=== PATIENT | female | born 1975 | race Caucasian/White ===

== ENCOUNTER 2016-08-21 23:22 | Emergency (ER) | payer SELFPAY ==
[~2016-08-21] VITALS: Ht 170.2 cm; Wt 90.7 kg
[2016-08-21] MEDS ORDERED: ZOLP5TAB7 (23:36)
[2016-08-21] MEDS ORDERED: SERT50TA9 (23:36)
[2016-08-21] MEDS ORDERED: GABA600T2 (23:36)
[2016-08-22] MEDS ORDERED: RX-NAPROXEN (NAPROSYN) 250 MG TAB PPK#4 PO STA (00:08)
[2016-08-22] MEDS ORDERED: RX-CLINDAMYCIN 150 MG (CLEOCIN) CAP PPK#4 PO STA (00:08)
[2016-08-22] MEDS ORDERED: LIDO15SO2 MM (00:12)
[2016-08-22] MEDS ORDERED: CLIN300C11 PO (00:12)
[2016-08-22] MEDS ORDERED: NAPR500T3 PO (00:12)
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
[2016-08-22] MEDS ORDERED: LIDOCAINE 2% VISCOUS 15 ML UDC PO ONE (00:15)
[2016-08-22 00:20] VITALS: BP 139/96
== END 2016-08-22 00:19 | disposition home or self-care (01) ==
LOC: EDUNIT# 23:22 → ER 23:27
DX: K02.9 Dental caries, unspecified (principal); F17.210 Nicotine dependence, cigarettes, uncomplicated
CPT/HCPCS: 99283

== ENCOUNTER 2016-08-24 15:28 | Emergency (ER) | payer SELFPAY ==
[~2016-08-24] VITALS: Ht 170.2 cm; Wt 90.7 kg
[~2016-08-24 15:28] MED LIST: CLIN300C11 PO; GABA600T2; LIDO15SO2 MM; NAPR500T3 PO; SERT50TA9; ZOLP5TAB7
--- NOTE | 2016-08-24 15:39 | ED EENT ---
History of Present Illness General Stated Complaint: TEETH PAIN Source: patient Exam Limitations: no limitations History of Present Illness Time seen by provider: 15:37 Initial Comments To ER with right lower dental pain for the past few days. She was seen here 2 days ago and got clindamycin, topical lidocaine and Naprosyn. She states this is not new strong for her pain and she will need something stronger. She has not seen her dentist. I called [facility] and they report that she was a no-show on her 08/08 and 08/23 appointment. She states "can you prescribe pain medication in [place] anymore?! I'm going back to [place]!" Timing/Duration: gradual Severity: moderate Location: mouth Associated Symptoms: denies symptoms Allergies and Home Medications Allergies Coded Allergies: Penicillins (Verified Allergy, Unknown, 08/21/16) Home Medications Clindamycin HCl 300 Mg Capsule, 300 MG PO QID, #40 Prescribed by: ALINA LYONS on 08/22/16 0012 Gabapentin 600 Mg Tablet, #135 (Reported) Lidocaine HCl 15 Ml Solution, 5 ML MM Q 1-2 HOURS, #100 Prescribed by: ALINA LYONS on 08/22/16 0012 Naproxen 500 Mg Tablet, 500 MG PO BID, #20 Prescribed by: ALINA LYONS on 08/22/16 0012 Sertraline HCl 50 Mg Tablet, #30 (Reported) Zolpidem Tartrate 5 Mg Tablet, #28 (Reported) Review of Systems Constitutional: see HPI Eyes: No Symptoms Reported Ears: No Symptoms Reported Nose: no symptoms reported Mouth: see HPI Throat: no symptoms reported Respiratory: no symptoms reported Cardiovascular: no symptoms reported Musculoskeletal: no symptoms reported Past Commwug-Bctaat-Ixpmod Hx Patient Social History Type Used: Cigarettes 2nd Hand Smoke Exposure: Yes Recent Foreign Travel: No Contact w/Someone Who Travel: No Recent Hopitalizations: No Immunizations Up To Date Tetanus Booster (TDap): Unknown Seasonal Allergies Seasonal Allergies: No Surgeries HX Surgeries: Yes Surgeries: Appendectomy Respiratory Hx Respiratory Disorders: No Cardiovascular Hx Cardiac Disorders: No Neurological Hx Neurological Disorders: No Reproductive System Female Reproductive Disorders: Denies Genitourinary Hx Genitourinary Disorders: No Gastrointestinal Hx Gastrointestinal Disorders: No Musculoskeletal Hx Musculoskeletal Disorders: No Musculoskeletal Disorders: Fibromyalgia Endocrine Hx Endocrine Disorders: No HEENT HX ENT Disorders: Yes (CHRONIC DENTAL PROBLEMS) Cancer Hx Cancer: No Psychosocial Hx Psychiatric Problems: Yes Behavioral Health Disorders: Sleep Difficulties, Anxiety, Depression Integumentary HX Skin/Integumentary Disorder: No Blood Transfusions Hx Blood Disorders: No Physical Exam General Appearance: WD/WN, no apparent distress Eyes: bilateral eye EOMI, bilateral eye PERRL, bilateral eye normal inspection Ears: bilateral ear TM normal, bilateral ear auricle normal, bilateral ear canal normal Nose: normal inspection, active bleeding Mouth/Throat: other (dental caries) Neck: non-tender, full range of motion Respiratory: no respiratory distress, no accessory muscle use Gastrointestinal: normal bowel sounds, non tender, soft Neurologic/Psychiatric: alert, normal mood/affect, oriented x 3 Skin: normal color, warm/dry Departure Impression Impression: Primary Impression: Pain, dental Disposition: 01 HOME, SELF-CARE Condition: Stable Departure-Patient Inst. Decision time for Depature: 15:37 Referrals: [facility] (PCP) Primary Care Physician JENNIFER BUTLER (Family) Primary Care Physician Patient Instructions: Dental Pain Add. Discharge Instructions: 1. Follow-up with [facility] 2. Continue current medications EMILY ANDERSON APRN Aug 24, 2016 15:39
[2016-08-24 15:43] VITALS: BP 175/100
== END 2016-08-24 15:47 | disposition home or self-care (01) ==
LOC: EDUNIT# 15:28 → ER 15:29
DX: K08.9 Disorder of teeth and supporting structures, unspecified (principal)
CPT/HCPCS: 99283

== ENCOUNTER 2016-09-24 00:31 | Emergency (ER) | payer SELFPAY ==
[~2016-09-24] VITALS: Ht 160 cm; Wt 90.7 kg
[2016-09-24] MEDS ORDERED: NS IV 1000 ML 1,000 ML IV ONE (00:40)
[2016-09-24 00:53] LABS: BASOPHILS # (AUTO) 0.1 10^3/uL (0.0-0.1); BASOPHILS % (AUTO) 1 % (0-10); EOSINOPHILS # (AUTO) 0.4 10^3/uL (0.0-0.3); EOSINOPHILS % (AUTO) 3 % (0-10); LYMPHOCYTES # (AUTO) 5.6 X 10^3 (1.0-4.0); LYMPHOCYTES % (AUTO) 44 % (12-44); MEAN CORPUSCULAR HEMOGLOBIN 34 PG (25-34); MEAN CORPUSCULAR HGB CONC 34 G/DL (32-36); MEAN CORPUSCULAR VOLUME 101 FL (80-99); MEAN PLATELET VOLUME 10.8 FL (7.4-10.4); MONOCYTES # (AUTO) 0.8 X 10^3 (0.0-1.0); MONOCYTES % (AUTO) 6 % (0-12); NEUTROPHILS % (AUTO) 47 % (42-75); PLATELET COUNT 289 10^3/uL (130-400); RED BLOOD COUNT 4.24 10^6/uL (4.35-5.85); RED CELL DISTRIBUTION WIDTH 13.1 % (10.0-14.5); WHITE BLOOD COUNT 12.8 10^3/uL (4.3-11.0)
[2016-09-24 01:10] LABS: ALANINE AMINOTRANSFERASE 25 U/L (0-55); ALBUMIN 4.3 GM/DL (3.2-4.5); ANION GAP 16 MMOL/L (5-14); ASPARTATE AMINO TRANSFERASE 27 U/L (5-34); BILIRUBIN,TOTAL 0.2 MG/DL (0.1-1.0); BLOOD UREA NITROGEN 8 MG/DL (7-18); BUN/CREATININE RATIO 10; CALCIUM 9.2 MG/DL (8.5-10.1); CARBON DIOXIDE 19 MMOL/L (21-32); CHLORIDE 107 MMOL/L (98-107); GFR ESTIMATED > 60; GLUCOSE 109 MG/DL (70-105); POTASSIUM 3.6 MMOL/L (3.6-5.0); SODIUM 142 MMOL/L (135-145); TOTAL PROTEIN 7.6 GM/DL (6.4-8.2)
[2016-09-24 01:17] LABS: ALCOHOL 354 MG/DL (<10)
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
[2016-09-24 02:55] VITALS: BP 131/91
--- NOTE | 2016-09-24 08:26 | Diagnostic Imaging Report ---
PROCEDURE: CT head, face, and cervical spine without contrast. TECHNIQUE: Multiple contiguous axial images were obtained through the head, neck, and facial bones without the use of intravenous contrast. Sagittal and coronal reformations through the cervical spine and facial bones were also performed. INDICATION: Fall. Hematoma on back of head. Blood in mouth FINDINGS: There is a large hematoma overlying the left posterior parietal lobe. There is no evidence of an underlying calvarial fracture. There is a small region of hyperdensity overlying the anterior aspect of the right frontal lobe measuring approximately 6 mm on axial image 11. While this could reflect a small meningioma, the possibility of a small degree of blood products in the setting of trauma is not completely excluded. No intra-axial hemorrhage is demonstrated. There is no mass effect or hydrocephalus. Kendall-white differentiation appears preserved. The bony orbit appears intact. The intraorbital contents are unremarkable. There are no air-fluid levels within the paranasal sinuses. There is some right maxillary sinus mucosal thickening. There is no fracture evident of the zygomatic arch. The pterygoids are unremarkable. No nasal bone fracture evident. The mastoid air cells appear clear. Temporomandibular joints are located. No mandibular fracture is demonstrated. Assessment of the cervical spine is compromised by the patient's marked rotation of the head. The relationship of C1 and C2 demonstrate a rotatory subluxation. There is no fracture evident. There is an equal degree of subluxation of the lateral masses and change in the spacing between the lateral masses of C1 and the dens. 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 Facet alignment is normal. There is no abnormal facet joint or disc space widening. Vertebral body heights appear maintained. The lung apices appear clear. No acute soft tissue abnormality demonstrated within the neck. IMPRESSION: 1. Large left posterior parietal subcutaneous hematoma without evidence of underlying calvarial fracture. 2. A 5-mm region of extra-axial hyperdensity along the anterior aspect of the right frontal lobe. In the setting of trauma, it is not possible to completely exclude hemorrhage though this could reflect a small meningioma. 3. Marked rotation of the head limits assessment of the craniocervical junction alignment. Relationship of C1, C2, and the occipital condyles is believed to be related to this rotation when correlated with the deputy clerk of court tomogram. There is no evidence of an acute fracture. Repeat CT imaging of the head would be useful to evaluate the extra-axial hyperdensity and to determine if this is a stable or progressive finding or if this resolves. MRI could also be considered. When CT imaging of the head is performed, also consider repeat CT imaging of the cervical spine with improved patient positioning which would be useful for confirmation of the rotatory changes at the craniocervical junction being simply positional in nature. Dictated by: Dictated on workstation # [id number]
== END 2016-09-24 02:55 | disposition left against medical advice (07) ==
LOC: EDUNIT# 00:34 → ER 00:35
DX: S09.90XA Unspecified injury of head, initial encounter (principal); S00.03XA Contusion of scalp, initial encounter; S00.83XA Contusion of other part of head, initial encounter; F10.129 Alcohol abuse with intoxication, unspecified; F41.8 Other specified anxiety disorders; G47.8 Other sleep disorders; F17.210 Nicotine dependence, cigarettes, uncomplicated; Z90.49 Acquired absence of other specified parts of digestive tract; W01.10XA Fall on same level from slipping, tripping and stumbling with subsequent striking against unspecified object, initial encounter
CPT/HCPCS: 36415; 70450; 70486; 72125; 80053; 80320; 84703; 85025; 96360

== ENCOUNTER → 2016-10-06 | Outpatient (CLI) | payer OTHER ==
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
== END ==
LOC: RAD 14:38
PROVIDERS: ATTEND Nurse Practitioner Community Health
DX: S06.350D Traumatic hemorrhage of left cerebrum without loss of consciousness, subsequent encounter (principal); Y04.8XXD Assault by other bodily force, subsequent encounter; Y92.410 Unspecified street and highway as the place of occurrence of the external cause; Y99.8 Other external cause status
CPT/HCPCS: 70551